=== PATIENT | male | born 1955 | race Caucasian/White ===

== ENCOUNTER 2017-08-15 10:19 | Inpatient (IN) | payer MEDICAID ==
[2017-08-15] VITALS (8 sets, daily range): BP systolic 131–194
[~2017-08-15] VITALS: Ht 175.3 cm; Wt 74.1 kg
[~2017-08-15 10:19] MED LIST: FERR-57 PO; FURO-149 PO; PHEN-726 PO
[2017-08-15] MEDS ORDERED: NACL 0.9% 1,000 ML IV ONE (10:30)
[2017-08-15] MEDS ORDERED: fentaNYL CITRATE/PF 100 MCG/2 ML AMP IVP ONE ×3 (10:30→15:15)
[2017-08-15] MEDS ORDERED: ROCURONIUM BROMIDE 10 MG/ML (ZEMURON) IV ONE ×2 (10:45→17:58)
[2017-08-15] MEDS ORDERED: SEVOFLURANE 15 MIN GAS INH ONE ×2 (10:45→17:58)
[2017-08-15] MEDS ORDERED: ePHEDrine sulfate 50 MG/ML VIAL IVP ONE (10:45)
[2017-08-15] MEDS ORDERED: ONDANSETRON HCL 4 MG/2 ML VIAL IVP ONE ×3 (10:45→17:45)
[2017-08-15] MEDS ORDERED: fentaNYL CITRATE 250 MCG/5 ML AMP IV ONE ×2 (10:45→17:58)
[2017-08-15] MEDS ORDERED: DEXAMETHASONE SOD PHOSPHATE 4 MG/ML VIAL IVP ONE (10:45)
[2017-08-15] MEDS ORDERED: PIPERACILLIN/TAZOBACTAM 3.375 GM/VIAL (ZOSYN) IV ONE ×2 (10:45→22:17)
[2017-08-15] MEDS ORDERED: PHENYLEPHRINE HCL 10 MG/ML VIAL (NEOSYNEPHRINE) IV ONE (10:45)
[2017-08-15] MEDS ORDERED: LIDOCAINE 1% 10 MG/ML, 20 ML MDV INJ ONE ×2 (10:45→11:45)
[2017-08-15] MEDS ORDERED: MIDAZOLAM HCL 5 MG/5 ML VIAL IVP ONE (10:45)
[2017-08-15] MEDS ORDERED: PROPOFOL 200MG/ 20ML VIAL (DIPRIVAN) IV ONE (10:45)
[2017-08-15] MEDS ORDERED: LR 1,000 ML IV.SOLN IV ONE ×2 (10:45→17:58)
[2017-08-15] MEDS ORDERED: GLYCOPYRROLATE 0.2 MG/ML VIAL IJ ONE (10:45)
[2017-08-15] MEDS ORDERED: WATER FOR IRRIGATION,STERILE 4,000 ML IRRIG.SOLN IR ONE (10:45)
[2017-08-15] MEDS ORDERED: MEPERIDINE HCL/PF 100 MG/ML AMP IM ONE ×2 (10:45→17:58)
[2017-08-15] MEDS ORDERED: WATER FOR IRRIGATION,STERILE 1,000 ML IRRIG.SOLN IR ONE (10:45)
[2017-08-15] MEDS ORDERED: NS IRRIG SOLN 5000 ML IR ONE (10:45)
[2017-08-15 12:10] LABS: INR 1.2 (0.80-1.20); PROTHROMBIN TIME 12.3 SECS (9.5-12.5)
[2017-08-15 12:13] LABS: BASOPHILS % (AUTO) 0.1 % (0.0-2.0); EOSINOPHILS % (AUTO) 0.1 % (0.0-4.0); LYMPHOCYTES # (AUTO) 1.2 K/uL (1.0-5.5); LYMPHOCYTES % (AUTO) 7.4 % (20.5-51.5); MEAN CORPUSCULAR HEMOGLOBIN 26 pg (27-31); MEAN CORPUSCULAR HGB CONC 33 % (32-36); MEAN CORPUSCULAR VOLUME 79 fL (79.0-98.0); MONOCYTES % (AUTO) 6.1 % (1.7-9.3); NEUTROPHILS # (AUTO) 14.3 K/uL (1.8-7.7); NEUTROPHILS % (AUTO) 86.3 % (40.0-70.0); PLATELET COUNT (AUTO) 613 K/uL (130-430); RED CELL DISTRIBUTION WIDTH 19.7 % (9.0-15.0); WHITE BLOOD COUNT (AUTO) 16.5 K/uL (4.8-10.8)
[2017-08-15 12:15] LABS: CALCIUM 7.6 mg/dL (8.4-11.0); CREATININE 1.74 mg/dL (0.55-1.30); POTASSIUM 4.5 mmol/L (3.5-5.1); RED BLOOD CELL COUNT(AUTO) 1.66 MIL/uL (4.2-6.2)
[2017-08-15 12:16] LABS: HEMATOCRIT 13.2 % (36-54); HEMOGLOBIN 4.4 g/dL (14.0-18.0)
[2017-08-15 12:19] LABS: ALBUMIN 1.6 g/dL (3.4-4.8); TOTAL BILIRUBIN 0.3 mg/dL (0.0-1.0)
[2017-08-15] MEDS ORDERED: NACL 0.9% 1,750 ML IV ONE (12:30)
[2017-08-15] MEDS ORDERED: MORPHINE 4 MG/ML INJ. SYRINGE IVP PRN ×3 (17:30→21:00)
[2017-08-15] MEDS ORDERED: MEPERIDINE HCL/PF 25 MG/ML DISP.SYRIN IVP PRN (17:45)
[2017-08-15] MEDS ORDERED: MIDAZOLAM HCL 5 MG/5 ML VIAL IVP PRN (17:45)
[2017-08-15] MEDS ORDERED: NALOXONE HCL 0.4 MG/ML AMP (NARCAN) IVP ONE (17:45)
[2017-08-15] MEDS ORDERED: fentaNYL CITRATE/PF 100 MCG/2 ML AMP IVP PRN (17:45)
[2017-08-15] MEDS ORDERED: ETOMIDATE 20 MG/ 10 ML VIAL (AMIDATE) IVP ONE (17:58)
[2017-08-15] MEDS ORDERED: MORPHINE SULFATE 10 MG/ML VIAL IVP ONE (17:58)
[2017-08-15] MEDS ORDERED: MIDAZOLAM HCL 5 MG/ML VIAL (VERSED) IV ONE (17:58)
[2017-08-15] MEDS ORDERED: cefTRIAXone 1 GM IVPB PREMIX 50 ML IV ONE (17:58)
[2017-08-15] MEDS ORDERED: SUCCINYLCHOLINE CHLORIDE 20 MG/ML(QUELICIN) IVP ONE (17:58)
[2017-08-15] MEDS ORDERED: NS IRRIG SOLN 1000 ML IR ONE (17:58)
[2017-08-15] MEDS: KETOROLAC TROMETHAMINE 15 MG VIAL IVP SCH ×2 (18:00→23:49)
[2017-08-15] MEDS ORDERED: ONDANSETRON HCL 4 MG/2 ML VIAL IVP PRN (19:45)
[2017-08-15] MEDS ORDERED: cefTRIAXone 1 GM in D5W 50 ML IV SCH (20:00)
[2017-08-15] MEDS ORDERED: PNEUMOCOCCAL 23-VAL P-SAC VAC 0.5 ML VIAL I.M. ONE (20:00)
[2017-08-15] MEDS: PIPERACILLIN/TAZO 3.375/DEX-IS 50 ML IV SCH ×2 (20:15→23:40)
[2017-08-15 20:16] LABS: BASOPHILS # (AUTO) 0.5 K/uL (0.0-0.2); BASOPHILS % (AUTO) 3.2 % (0.0-2.0); EOSINOPHILS % (AUTO) 0.1 % (0.0-4.0); HEMOGLOBIN 7.5 g/dL (14.0-18.0); LYMPHOCYTES # (AUTO) 1.5 K/uL (1.0-5.5); LYMPHOCYTES % (AUTO) 9.9 % (20.5-51.5); MEAN CORPUSCULAR HEMOGLOBIN 30 pg (27-31); MEAN CORPUSCULAR HGB CONC 35 % (32-36); MEAN CORPUSCULAR VOLUME 86 fL (79.0-98.0); MONOCYTES # (AUTO) 1.2 K/uL (0.0-1.0); MONOCYTES % (AUTO) 7.8 % (1.7-9.3); NEUTROPHILS # (AUTO) 12.2 K/uL (1.8-7.7); PLATELET COUNT (AUTO) 463 K/uL (130-430); RED CELL DISTRIBUTION WIDTH 15.5 % (9.0-15.0); WHITE BLOOD COUNT (AUTO) 15.4 K/uL (4.8-10.8)
[2017-08-15 20:19] LABS: HEMATOCRIT 21.6 % (36-54)
[2017-08-15] MEDS ORDERED: LORazepam 2 MG/ML VIAL IVP PRN (21:00)
[2017-08-15] MEDS ORDERED: MORPHINE 2 MG/ML INJ. SYRINGE IVP PRN (21:15)
[2017-08-15] MEDS: NACL 0.9% 1,000 ML IV SCH (21:55)
[2017-08-16] VITALS (26 sets, daily range): BP systolic 95–166
[2017-08-16] MEDS: ENALAPRILAT DIHYDRATE 1.25 MG/ML VIAL IVP PRN (00:23)
[2017-08-16 03:30] LABS: RED BLOOD CELL COUNT(AUTO) 2.28 MIL/uL (4.2-6.2); WHITE BLOOD COUNT (AUTO) 13.3 K/uL (4.8-10.8)
[2017-08-16 03:31] LABS: MEAN CORPUSCULAR HEMOGLOBIN 29 pg (27-31); MEAN CORPUSCULAR HGB CONC 34 % (32-36); MEAN CORPUSCULAR VOLUME 84 fL (79.0-98.0); PLATELET COUNT (AUTO) 409 K/uL (130-430); RED CELL DISTRIBUTION WIDTH 15.6 % (9.0-15.0)
[2017-08-16 03:32] LABS: BASOPHILS % (AUTO) 0.1 % (0.0-2.0); EOSINOPHILS % (AUTO) 0.3 % (0.0-4.0); LYMPHOCYTES # (AUTO) 1.2 K/uL (1.0-5.5); LYMPHOCYTES % (AUTO) 8.7 % (20.5-51.5); MONOCYTES % (AUTO) 7.6 % (1.7-9.3); NEUTROPHILS # (AUTO) 11.1 K/uL (1.8-7.7)
[2017-08-16 03:36] LABS: HEMOGLOBIN 6.5 g/dL (14.0-18.0)
[2017-08-16 03:47] LABS: NEUTROPHILS % (AUTO) 83.3 % (40.0-70.0)
[2017-08-16 05:07] LABS: PROTHROMBIN TIME 10.6 SECS (9.5-12.5)
[2017-08-16 05:12] LABS: ALBUMIN 1.7 g/dL (3.4-4.8); CALCIUM 7.2 mg/dL (8.4-11.0); CREATININE 1.61 mg/dL (0.55-1.30); POTASSIUM 4.3 mmol/L (3.5-5.1); TOTAL BILIRUBIN 0.5 mg/dL (0.0-1.0)
[2017-08-16 05:52] LABS: BILIRUBIN,URINE 2+ (NEGATIVE); BLOOD, URINE 3+ (NEGATIVE); CLARITY/URINE CLOUDY (CLEAR); COLOR,URINE RED (YELLOW); GLUCOSE,URINE NEGATIVE (NEGATIVE); KETONES,URINE NEGATIVE (NEGATIVE); LEUKOCYTE ESTERASE ,URINE TRACE (NEGATIVE); NITRITE, URINE POSITIVE (NEGATIVE); PROTEIN URINE 3+ (NEGATIVE)
[2017-08-16] MEDS: KETOROLAC TROMETHAMINE 15 MG VIAL IVP SCH ×4 (06:06→23:29)
[2017-08-16] MEDS: PIPERACILLIN/TAZO 3.375/DEX-IS 50 ML IV SCH ×4 (06:07→23:29)
[2017-08-16 06:47] LABS: RBC,URINE >100 /HPF (0-3)
[2017-08-16 06:48] LABS: BACTERIA,URINE MODERATE /HPF (None Seen)
[2017-08-16] MEDS ORDERED: FUROSEMIDE 40 MG/4 ML VIAL IVP ONE (07:00)
[2017-08-16] MEDS: PANTOPRAZOLE SODIUM 40 MG/VIAL (PROTONIX) IVP SCH (08:48)
[2017-08-16] MEDS: NACL 0.9% 1,000 ML IV SCH ×3 (08:49→23:34)
[2017-08-16 09:18] LABS: BASOPHILS % (AUTO) 0.1 % (0.0-2.0); EOSINOPHILS % (AUTO) 0.3 % (0.0-4.0); HEMATOCRIT 24.7 % (36-54); HEMOGLOBIN 8.4 g/dL (14.0-18.0); LYMPHOCYTES # (AUTO) 1.1 K/uL (1.0-5.5); MEAN CORPUSCULAR HEMOGLOBIN 29 pg (27-31); MEAN CORPUSCULAR HGB CONC 34 % (32-36); MEAN CORPUSCULAR VOLUME 86 fL (79.0-98.0); MONOCYTES # (AUTO) 1.2 K/uL (0.0-1.0); MONOCYTES % (AUTO) 9.4 % (1.7-9.3); NEUTROPHILS % (AUTO) 82.2 % (40.0-70.0); PLATELET COUNT (AUTO) 397 K/uL (130-430); RED BLOOD CELL COUNT(AUTO) 2.87 MIL/uL (4.2-6.2); RED CELL DISTRIBUTION WIDTH 15.8 % (9.0-15.0); WHITE BLOOD COUNT (AUTO) 13.3 K/uL (4.8-10.8)
[2017-08-16 12:29] LABS: BASOPHILS % (AUTO) 0.1 % (0.0-2.0); EOSINOPHILS # (AUTO) 0.1 K/uL (0.0-0.4); EOSINOPHILS % (AUTO) 0.5 % (0.0-4.0); HEMATOCRIT 26.2 % (36-54); HEMOGLOBIN 8.5 g/dL (14.0-18.0); LYMPHOCYTES # (AUTO) 1.1 K/uL (1.0-5.5); LYMPHOCYTES % (AUTO) 7.7 % (20.5-51.5); MEAN CORPUSCULAR HEMOGLOBIN 28 pg (27-31); MEAN CORPUSCULAR HGB CONC 33 % (32-36); MEAN CORPUSCULAR VOLUME 86 fL (79.0-98.0); MONOCYTES # (AUTO) 1.3 K/uL (0.0-1.0); MONOCYTES % (AUTO) 8.8 % (1.7-9.3); NEUTROPHILS # (AUTO) 11.8 K/uL (1.8-7.7); NEUTROPHILS % (AUTO) 82.9 % (40.0-70.0); PLATELET COUNT (AUTO) 431 K/uL (130-430); RED BLOOD CELL COUNT(AUTO) 3.04 MIL/uL (4.2-6.2); RED CELL DISTRIBUTION WIDTH 15.9 % (9.0-15.0); WHITE BLOOD COUNT (AUTO) 14.3 K/uL (4.8-10.8)
[2017-08-16 14:23] LABS: PFT COLLAGEN/ADP 58 SECONDS (64-106); PFT COLLAGEN/EPINEPHRINE 279 SECONDS (80-184)
[2017-08-17] VITALS (23 sets, daily range): BP systolic 125–171
[2017-08-17] MEDS: MORPHINE 4 MG/ML INJ. SYRINGE IVP PRN (02:04)
[2017-08-17 06:06] LABS: BASOPHILS % (AUTO) 0.2 % (0.0-2.0); EOSINOPHILS # (AUTO) 0.1 K/uL (0.0-0.4); EOSINOPHILS % (AUTO) 0.8 % (0.0-4.0); HEMATOCRIT 23.6 % (36-54); HEMOGLOBIN 8.1 g/dL (14.0-18.0); LYMPHOCYTES # (AUTO) 1.4 K/uL (1.0-5.5); LYMPHOCYTES % (AUTO) 7.4 % (20.5-51.5); MEAN CORPUSCULAR HEMOGLOBIN 30 pg (27-31); MEAN CORPUSCULAR HGB CONC 34 % (32-36); MEAN CORPUSCULAR VOLUME 86 fL (79.0-98.0); MONOCYTES # (AUTO) 1.3 K/uL (0.0-1.0); MONOCYTES % (AUTO) 7.2 % (1.7-9.3); NEUTROPHILS # (AUTO) 15.9 K/uL (1.8-7.7); NEUTROPHILS % (AUTO) 84.4 % (40.0-70.0); PLATELET COUNT (AUTO) 494 K/uL (130-430); RED BLOOD CELL COUNT(AUTO) 2.74 MIL/uL (4.2-6.2); RED CELL DISTRIBUTION WIDTH 15.9 % (9.0-15.0); WHITE BLOOD COUNT (AUTO) 18.7 K/uL (4.8-10.8)
[2017-08-17] MEDS: KETOROLAC TROMETHAMINE 15 MG VIAL IVP SCH ×4 (06:12→23:42)
[2017-08-17] MEDS: PIPERACILLIN/TAZO 3.375/DEX-IS 50 ML IV SCH ×4 (06:13→23:41)
[2017-08-17 06:48] LABS: ALBUMIN 1.3 g/dL (3.4-4.8); CREATININE 1.45 mg/dL (0.55-1.30); POTASSIUM 3.4 mmol/L (3.5-5.1); TOTAL BILIRUBIN 0.4 mg/dL (0.0-1.0)
[2017-08-17 06:51] LABS: CALCIUM 6.9 mg/dL (8.4-11.0)
[2017-08-17] MEDS ORDERED: KCL 20 mEq in 100 mL (PREMIX) 100 ML IV ONE (07:00)
[2017-08-17] MEDS: NACL 0.9% 1,000 ML IV SCH ×2 (10:00→23:35)
[2017-08-17] MEDS: PANTOPRAZOLE SODIUM 40 MG/VIAL (PROTONIX) IVP SCH (10:00)
[2017-08-17 10:22] LABS: FREE PSA 4.64 ng/mL
[2017-08-17] MEDS ORDERED: ACETAMINOPHEN 650 MG SUPP.RECT RC PRN (16:00)
[2017-08-17] MEDS: ENALAPRILAT DIHYDRATE 1.25 MG/ML VIAL IVP PRN (16:36)
[2017-08-18] VITALS (21 sets, daily range): BP systolic 108–171
[2017-08-18] MEDS: ENALAPRILAT DIHYDRATE 1.25 MG/ML VIAL IVP PRN (04:53)
[2017-08-18 06:02] LABS: HEMATOCRIT 26.7 % (36-54); MEAN CORPUSCULAR HEMOGLOBIN 30 pg (27-31); MEAN CORPUSCULAR HGB CONC 34 % (32-36); MEAN CORPUSCULAR VOLUME 88 fL (79.0-98.0); PLATELET COUNT (AUTO) 623 K/uL (130-430); RED BLOOD CELL COUNT(AUTO) 3.05 MIL/uL (4.2-6.2); RED CELL DISTRIBUTION WIDTH 15.7 % (9.0-15.0); WHITE BLOOD COUNT (AUTO) 19.5 K/uL (4.8-10.8)
[2017-08-18 06:05] LABS: CALCIUM 7.4 mg/dL (8.4-11.0); CREATININE 1.22 mg/dL (0.55-1.30); POTASSIUM 3.2 mmol/L (3.5-5.1)
[2017-08-18 06:11] LABS: ALBUMIN 1.4 g/dL (3.4-4.8); TOTAL BILIRUBIN 0.5 mg/dL (0.0-1.0)
[2017-08-18] MEDS: KETOROLAC TROMETHAMINE 15 MG VIAL IVP SCH ×3 (06:20→17:43)
[2017-08-18] MEDS: PIPERACILLIN/TAZO 3.375/DEX-IS 50 ML IV SCH ×4 (06:20→23:54)
[2017-08-18 06:25] LABS: ATYPICAL LYMPHOCYTES % 0 % (0-0); BAND % (MANUAL) 1 % (0-6); LYMPHOCYTES % (MANUAL) 5 % (20-46); MONOCYTES % (MANUAL) 2 % (0-11)
[2017-08-18 06:26] LABS: BASOPHILS % (MANUAL) 0 % (0-2); EOSINOPHILS % (MANUAL) 0 % (0-7)
[2017-08-18] MEDS ORDERED: KCL 20 mEq in 100 mL (PREMIX) 100 ML IV ONE (08:00)
[2017-08-18 08:08] LABS: PROSTATE SPECIFIC AG TOTAL 23.2 ng/mL (0.0-4.0)
[2017-08-18] MEDS: PANTOPRAZOLE SODIUM 40 MG/VIAL (PROTONIX) IVP SCH (08:46)
[2017-08-18] MEDS: NACL 0.9% 1,000 ML IV SCH (08:47)
[2017-08-18] MEDS ORDERED: DEXTROSE 50% JECT 50 ML DISP.SYRIN IVP PRN (10:00)
[2017-08-18 10:35] LABS: PHOSPHORUS 3.2 mg/dL (2.7-4.5)
[2017-08-18] MEDS ORDERED: MIDAZOLAM HCL 5 MG/5 ML VIAL IVP PRN (12:15)
[2017-08-18] MEDS ORDERED: ONDANSETRON HCL 4 MG/2 ML VIAL IVP ONE (12:15)
[2017-08-18] MEDS ORDERED: fentaNYL CITRATE/PF 100 MCG/2 ML AMP IVP PRN (12:15)
[2017-08-18] MEDS ORDERED: MORPHINE 4 MG/ML INJ. SYRINGE IVP PRN (12:15)
[2017-08-18] MEDS ORDERED: MEPERIDINE HCL/PF 25 MG/ML DISP.SYRIN IVP PRN (12:15)
[2017-08-18] MEDS ORDERED: NALOXONE HCL 0.4 MG/ML AMP (NARCAN) IVP ONE (12:15)
[2017-08-18] MEDS ORDERED: IOHEXOL 50 ML IV ONE (12:46)
[2017-08-18 14:50] LABS: BASOPHILS % (AUTO) 0.1 % (0.0-2.0); EOSINOPHILS # (AUTO) 0.1 K/uL (0.0-0.4); EOSINOPHILS % (AUTO) 0.6 % (0.0-4.0); HEMATOCRIT 26.4 % (36-54); HEMOGLOBIN 8.8 g/dL (14.0-18.0); LYMPHOCYTES # (AUTO) 0.6 K/uL (1.0-5.5); LYMPHOCYTES % (AUTO) 2.6 % (20.5-51.5); MEAN CORPUSCULAR HEMOGLOBIN 29 pg (27-31); MEAN CORPUSCULAR HGB CONC 33 % (32-36); MEAN CORPUSCULAR VOLUME 86 fL (79.0-98.0); MONOCYTES # (AUTO) 0.7 K/uL (0.0-1.0); MONOCYTES % (AUTO) 3.1 % (1.7-9.3); NEUTROPHILS # (AUTO) 22.2 K/uL (1.8-7.7); NEUTROPHILS % (AUTO) 93.6 % (40.0-70.0); PLATELET COUNT (AUTO) 671 K/uL (130-430); RED BLOOD CELL COUNT(AUTO) 3.06 MIL/uL (4.2-6.2); RED CELL DISTRIBUTION WIDTH 16.4 % (9.0-15.0); WHITE BLOOD COUNT (AUTO) 23.6 K/uL (4.8-10.8)
[2017-08-18 14:57] LABS: CALCIUM 7.6 mg/dL (8.4-11.0); CREATININE 1.22 mg/dL (0.55-1.30); POTASSIUM 3.8 mmol/L (3.5-5.1)
[2017-08-18 15:00] LABS: PHOSPHORUS 3.7 mg/dL (2.7-4.5)
[2017-08-18] MEDS: 0.45% NACL 1,000 ML IV SCH (15:16)
[2017-08-18] MEDS: FAT EMULSIONS 250 ML IV SCH (17:41)
[2017-08-18] MEDS ORDERED: SODIUM ACETATE IV SCH ×9 (18:00)
[2017-08-18] MEDS ORDERED: TPN PERIPHERAL IV SCH ×9 (18:00)
[2017-08-18] MEDS ORDERED: *TPN PER PHARMACY XX PRN (18:00)
[2017-08-18] MEDS ORDERED: POTASSIUM ACETATE IV SCH ×9 (18:00)
[2017-08-18] MEDS ORDERED: [UNRECOGNIZED DRUG - OTHER] IV SCH ×9 (18:00)
[2017-08-18] MEDS: INSULIN REGULAR, HUMAN 100 UNITS/ML, 10 ML VIAL (novoLIN R) SUBCUT PRN (23:58)
[2017-08-19] VITALS (15 sets, daily range): BP systolic 130–174
[2017-08-19] MEDS: PIPERACILLIN/TAZO 3.375/DEX-IS 50 ML IV SCH ×4 (05:16→23:35)
[2017-08-19] MEDS: INSULIN REGULAR, HUMAN 100 UNITS/ML, 10 ML VIAL (novoLIN R) SUBCUT PRN ×2 (05:20→23:44)
[2017-08-19] MEDS: KETOROLAC TROMETHAMINE 15 MG VIAL IVP SCH ×5 (06:00→23:32)
[2017-08-19 06:27] LABS: BASOPHILS % (AUTO) 0.1 % (0.0-2.0); EOSINOPHILS % (AUTO) 0.1 % (0.0-4.0); HEMATOCRIT 23.7 % (36-54); LYMPHOCYTES # (AUTO) 0.9 K/uL (1.0-5.5); LYMPHOCYTES % (AUTO) 4.3 % (20.5-51.5); MEAN CORPUSCULAR HEMOGLOBIN 29 pg (27-31); MEAN CORPUSCULAR HGB CONC 34 % (32-36); MEAN CORPUSCULAR VOLUME 87 fL (79.0-98.0); MONOCYTES # (AUTO) 1.3 K/uL (0.0-1.0); MONOCYTES % (AUTO) 6.1 % (1.7-9.3); NEUTROPHILS # (AUTO) 19.7 K/uL (1.8-7.7); NEUTROPHILS % (AUTO) 89.4 % (40.0-70.0); RED BLOOD CELL COUNT(AUTO) 2.73 MIL/uL (4.2-6.2); RED CELL DISTRIBUTION WIDTH 16.5 % (9.0-15.0); WHITE BLOOD COUNT (AUTO) 21.9 K/uL (4.8-10.8)
[2017-08-19 06:52] LABS: CALCIUM 7.4 mg/dL (8.4-11.0); CREATININE 1.02 mg/dL (0.55-1.30); POTASSIUM 4.4 mmol/L (3.5-5.1)
[2017-08-19 07:03] LABS: ALBUMIN 1.3 g/dL (3.4-4.8); TOTAL BILIRUBIN 0.4 mg/dL (0.0-1.0)
[2017-08-19 07:26] LABS: PLATELET COUNT (AUTO) 647 K/uL (130-430)
[2017-08-19] MEDS: PANTOPRAZOLE SODIUM 40 MG/VIAL (PROTONIX) IVP SCH (08:08)
[2017-08-19] MEDS: 0.45% NACL 1,000 ML IV SCH (11:29)
[2017-08-19] MEDS: FAT EMULSIONS 250 ML IV SCH (17:49)
[2017-08-19] MEDS ORDERED: TPN CENTRAL IV SCH ×10 (18:00)
[2017-08-19] MEDS ORDERED: SODIUM ACETATE IV SCH ×10 (18:00)
[2017-08-19] MEDS ORDERED: [UNRECOGNIZED DRUG - OTHER] IV SCH ×10 (18:00)
[2017-08-19] MEDS ORDERED: POTASSIUM ACETATE IV SCH ×10 (18:00)
[2017-08-19] MEDS ORDERED: K PHOS IV SCH ×10 (18:00)
[2017-08-20 00:55] VITALS: BP_SYST 137
[2017-08-20] MEDS: PIPERACILLIN/TAZO 3.375/DEX-IS 50 ML IV SCH ×3 (06:04→17:35)
[2017-08-20] MEDS: KETOROLAC TROMETHAMINE 15 MG VIAL IVP SCH ×2 (06:05→11:48)
[2017-08-20 06:11] LABS: HEMATOCRIT 23.8 % (36-54); HEMOGLOBIN 7.9 g/dL (14.0-18.0); MEAN CORPUSCULAR HEMOGLOBIN 29 pg (27-31); MEAN CORPUSCULAR HGB CONC 33 % (32-36); MEAN CORPUSCULAR VOLUME 87 fL (79.0-98.0); PLATELET COUNT (AUTO) 646 K/uL (130-430); RED BLOOD CELL COUNT(AUTO) 2.73 MIL/uL (4.2-6.2); RED CELL DISTRIBUTION WIDTH 16.3 % (9.0-15.0); WHITE BLOOD COUNT (AUTO) 21.5 K/uL (4.8-10.8)
[2017-08-20] MEDS: 0.45% NACL 1,000 ML IV SCH (06:16)
[2017-08-20 06:27] LABS: ALBUMIN 1.3 g/dL (3.4-4.8); CALCIUM 7.6 mg/dL (8.4-11.0); CREATININE 0.96 mg/dL (0.55-1.30); TOTAL BILIRUBIN 0.4 mg/dL (0.0-1.0)
[2017-08-20 07:46] LABS: BASOPHILS % (MANUAL) 0 % (0-2); CORRECTED WHITE BLOOD COUNT 16.5 K/uL (4.5-11.0); EOSINOPHILS % (MANUAL) 9 % (0-7); LYMPHOCYTES % (MANUAL) 8 % (20-46); MONOCYTES % (MANUAL) 11 % (0-11)
[2017-08-20 08:00] VITALS: BP_SYST 130
[2017-08-20] MEDS: PANTOPRAZOLE SODIUM 40 MG/VIAL (PROTONIX) IVP SCH (08:13)
[2017-08-20 11:32] VITALS: BP_SYST 130
[2017-08-20 15:42] VITALS: BP_SYST 139
[2017-08-20] MEDS: FAT EMULSIONS 250 ML IV SCH (17:55)
[2017-08-20] MEDS ORDERED: TPN CENTRAL IV SCH ×10 (18:00)
[2017-08-20] MEDS ORDERED: K PHOS IV SCH ×10 (18:00)
[2017-08-20] MEDS ORDERED: SODIUM ACETATE IV SCH ×10 (18:00)
[2017-08-20] MEDS ORDERED: POTASSIUM ACETATE IV SCH ×10 (18:00)
[2017-08-20] MEDS ORDERED: [UNRECOGNIZED DRUG - OTHER] IV SCH ×10 (18:00)
[2017-08-20 20:10] VITALS: BP_SYST 133
[2017-08-20] MEDS ORDERED: FUROSEMIDE 40 MG/4 ML VIAL IVP ONE (22:03)
[2017-08-21] MEDS: PIPERACILLIN/TAZO 3.375/DEX-IS 50 ML IV SCH ×5 (00:10→23:22)
[2017-08-21 00:15] VITALS: BP_SYST 123
[2017-08-21] MEDS: 0.45% NACL 1,000 ML IV SCH ×2 (03:50→23:00)
[2017-08-21 06:37] LABS: ALBUMIN 1.4 g/dL (3.4-4.8); CALCIUM 7.3 mg/dL (8.4-11.0); CREATININE 0.93 mg/dL (0.55-1.30); PHOSPHORUS 2.9 mg/dL (2.7-4.5); POTASSIUM 3.9 mmol/L (3.5-5.1); TOTAL BILIRUBIN 0.6 mg/dL (0.0-1.0)
[2017-08-21 08:14] VITALS: BP_SYST 143
[2017-08-21] MEDS: PANTOPRAZOLE SODIUM 40 MG/VIAL (PROTONIX) IVP SCH (08:53)
[2017-08-21 11:21] VITALS: BP_SYST 136
[2017-08-21 11:34] LABS: HEMATOCRIT 22.8 % (36-54); HEMOGLOBIN 7.8 g/dL (14.0-18.0); MEAN CORPUSCULAR HEMOGLOBIN 29 pg (27-31); MEAN CORPUSCULAR HGB CONC 34 % (32-36); MEAN CORPUSCULAR VOLUME 86 fL (79.0-98.0); PLATELET COUNT (AUTO) 630 K/uL (130-430); RED BLOOD CELL COUNT(AUTO) 2.65 MIL/uL (4.2-6.2); WHITE BLOOD COUNT (AUTO) 22.5 K/uL (4.8-10.8)
[2017-08-21 11:45] LABS: BAND % (MANUAL) 3 % (0-6); CORRECTED WHITE BLOOD COUNT 18.6 K/uL (4.5-11.0); EOSINOPHILS % (MANUAL) 2 % (0-7); LYMPHOCYTES % (MANUAL) 6 % (20-46); MONOCYTES % (MANUAL) 12 % (0-11)
[2017-08-21 11:46] LABS: BASOPHILS % (MANUAL) 0 % (0-2); METAMYELOCYTES % 2 % (0-0)
[2017-08-21 15:54] VITALS: BP_SYST 153
[2017-08-21] MEDS: FAT EMULSIONS 250 ML IV SCH (17:48)
[2017-08-21] MEDS ORDERED: [UNRECOGNIZED DRUG - OTHER] IV SCH ×10 (18:00)
[2017-08-21] MEDS ORDERED: POTASSIUM CHLORIDE IV SCH ×10 (18:00)
[2017-08-21] MEDS ORDERED: TPN CENTRAL IV SCH ×10 (18:00)
[2017-08-21] MEDS ORDERED: K PHOS IV SCH ×10 (18:00)
[2017-08-21] MEDS ORDERED: SODIUM ACETATE IV SCH ×10 (18:00)
[2017-08-21 20:00] VITALS: BP_SYST 130
[2017-08-21] MEDS: MORPHINE 4 MG/ML INJ. SYRINGE IVP PRN (23:50)
[2017-08-22] VITALS (7 sets, daily range): BP systolic 125–151
[2017-08-22] MEDS: 0.45% NACL 1,000 ML IV SCH (04:20)
[2017-08-22] MEDS: MORPHINE 4 MG/ML INJ. SYRINGE IVP PRN ×6 (04:58→21:43)
[2017-08-22] MEDS: PIPERACILLIN/TAZO 3.375/DEX-IS 50 ML IV SCH ×3 (05:00→18:00)
[2017-08-22 07:31] LABS: ALBUMIN 1.3 g/dL (3.4-4.8); CALCIUM 7.5 mg/dL (8.4-11.0); CREATININE 0.9 mg/dL (0.55-1.30); PHOSPHORUS 3.3 mg/dL (2.7-4.5); POTASSIUM 4.1 mmol/L (3.5-5.1); TOTAL BILIRUBIN 0.8 mg/dL (0.0-1.0)
[2017-08-22 07:41] LABS: MEAN CORPUSCULAR HEMOGLOBIN 29 pg (27-31); MEAN CORPUSCULAR HGB CONC 33 % (32-36); MEAN CORPUSCULAR VOLUME 87 fL (79.0-98.0); PLATELET COUNT (AUTO) 653 K/uL (130-430); RED BLOOD CELL COUNT(AUTO) 2.35 MIL/uL (4.2-6.2); RED CELL DISTRIBUTION WIDTH 16.6 % (9.0-15.0); WHITE BLOOD COUNT (AUTO) 25.1 K/uL (4.8-10.8)
[2017-08-22 07:44] LABS: HEMATOCRIT 20.4 % (36-54); HEMOGLOBIN 6.8 g/dL (14.0-18.0)
[2017-08-22] MEDS ORDERED: VANCOMYCIN HCL 1 GM/NS PREMIX 250 ML IV ONE (08:15)
[2017-08-22] MEDS: PANTOPRAZOLE SODIUM 40 MG/VIAL (PROTONIX) IVP SCH (08:54)
[2017-08-22] MEDS ORDERED: FUROSEMIDE 20 MG/2 ML VIAL IVP ONE (11:30)
[2017-08-22 11:49] LABS: BASOPHILS % (MANUAL) 0 % (0-2); EOSINOPHILS % (MANUAL) 4 % (0-7); LYMPHOCYTES % (MANUAL) 10 % (20-46); METAMYELOCYTES % 1 % (0-0); MONOCYTES % (MANUAL) 7 % (0-11); MYELOCYTES % 2 % (0-0)
[2017-08-22] MEDS: FAT EMULSIONS 250 ML IV SCH (17:21)
[2017-08-22] MEDS ORDERED: K PHOS IV SCH ×10 (18:00)
[2017-08-22] MEDS ORDERED: TPN CENTRAL IV SCH ×10 (18:00)
[2017-08-22] MEDS ORDERED: SODIUM CHLORIDE IV SCH ×10 (18:00)
[2017-08-22] MEDS ORDERED: POTASSIUM ACETATE IV SCH ×10 (18:00)
[2017-08-22] MEDS ORDERED: [UNRECOGNIZED DRUG - OTHER] IV SCH ×10 (18:00)
[2017-08-22] MEDS ORDERED: PIPERACILLIN/TAZOBACTAM 3.375 GM/VIAL (ZOSYN) IV ONE (18:04)
[2017-08-23] MEDS: PIPERACILLIN/TAZO 3.375/DEX-IS 50 ML IV SCH ×5 (00:25→23:19)
[2017-08-23] MEDS: MORPHINE 4 MG/ML INJ. SYRINGE IVP PRN ×3 (00:35→08:36)
[2017-08-23 00:42] VITALS: BP_SYST 139
[2017-08-23] MEDS ORDERED: PIPERACILLIN/TAZOBACTAM 3.375 GM/VIAL (ZOSYN) IV ONE (01:31)
[2017-08-23] MEDS: 0.45% NACL 1,000 ML IV SCH (05:04)
[2017-08-23 07:08] LABS: HEMATOCRIT 25.3 % (36-54); HEMOGLOBIN 8.6 g/dL (14.0-18.0); MEAN CORPUSCULAR HEMOGLOBIN 30 pg (27-31); MEAN CORPUSCULAR HGB CONC 34 % (32-36); MEAN CORPUSCULAR VOLUME 86 fL (79.0-98.0); PLATELET COUNT (AUTO) 616 K/uL (130-430); RED BLOOD CELL COUNT(AUTO) 2.93 MIL/uL (4.2-6.2); RED CELL DISTRIBUTION WIDTH 16.3 % (9.0-15.0)
[2017-08-23 07:23] LABS: ALBUMIN 1.5 g/dL (3.4-4.8); CALCIUM 7.6 mg/dL (8.4-11.0); CREATININE 1.08 mg/dL (0.55-1.30); PHOSPHORUS 3.4 mg/dL (2.7-4.5); TOTAL BILIRUBIN 1.3 mg/dL (0.0-1.0)
[2017-08-23 07:43] LABS: WHITE BLOOD COUNT (AUTO) 34.5 K/uL (4.8-10.8)
[2017-08-23 08:00] VITALS: BP_SYST 137
[2017-08-23] MEDS: PANTOPRAZOLE SODIUM 40 MG/VIAL (PROTONIX) IVP SCH (08:36)
[2017-08-23 10:35] LABS: BAND % (MANUAL) 3 % (0-6); BASOPHILS % (MANUAL) 0 % (0-2); EOSINOPHILS % (MANUAL) 2 % (0-7); LYMPHOCYTES % (MANUAL) 4 % (20-46); MONOCYTES % (MANUAL) 7 % (0-11); MYELOCYTES % 1 % (0-0)
[2017-08-23] MEDS ORDERED: ONDANSETRON HCL 4 MG/2 ML VIAL IVP PRN (10:45)
[2017-08-23] MEDS ORDERED: fentaNYL CITRATE/PF 100 MCG/2 ML AMP IVP PRN (10:45)
[2017-08-23] MEDS ORDERED: LIDOCAINE MPF 1% 50 MG/5 ML AMP INJ ONE (11:15)
[2017-08-23 12:00] VITALS: BP_SYST 137
[2017-08-23] MEDS ORDERED: MORPHINE 2 MG/ML INJ. SYRINGE IVP PRN (12:15)
[2017-08-23 16:09] LABS: HEMATOCRIT 23.7 % (36-54); HEMOGLOBIN 7.8 g/dL (14.0-18.0); MEAN CORPUSCULAR HEMOGLOBIN 29 pg (27-31); MEAN CORPUSCULAR HGB CONC 33 % (32-36); MEAN CORPUSCULAR VOLUME 86 fL (79.0-98.0); PLATELET COUNT (AUTO) 592 K/uL (130-430); RED BLOOD CELL COUNT(AUTO) 2.75 MIL/uL (4.2-6.2); RED CELL DISTRIBUTION WIDTH 16.5 % (9.0-15.0)
[2017-08-23 16:38] VITALS: BP_SYST 133
[2017-08-23 17:07] LABS: WHITE BLOOD COUNT (AUTO) 38.5 K/uL (4.8-10.8)
[2017-08-23] MEDS: FAT EMULSIONS 250 ML IV SCH (17:12)
[2017-08-23] MEDS ORDERED: [UNRECOGNIZED DRUG - OTHER] IV SCH ×10 (18:00)
[2017-08-23] MEDS ORDERED: POTASSIUM ACETATE IV SCH ×10 (18:00)
[2017-08-23] MEDS ORDERED: TPN CENTRAL IV SCH ×10 (18:00)
[2017-08-23] MEDS ORDERED: K PHOS IV SCH ×10 (18:00)
[2017-08-23] MEDS ORDERED: SODIUM CHLORIDE IV SCH ×10 (18:00)
[2017-08-23 20:32] VITALS: BP_SYST 126
[2017-08-23 21:39] LABS: BAND % (MANUAL) 3 % (0-6); LYMPHOCYTES % (MANUAL) 2 % (20-46)
[2017-08-23 21:40] LABS: BASOPHILS % (MANUAL) 0 % (0-2); EOSINOPHILS % (MANUAL) 2 % (0-7); MONOCYTES % (MANUAL) 5 % (0-11)
[2017-08-23] MEDS ORDERED: MORPHINE 4 MG/ML INJ. SYRINGE ONE (23:14)
[2017-08-23 23:24] LABS: BF APPEARANCE UNSPUN CLOUDY (CLEAR); BODY FLUID COLOR RED (LT YELLOW); BODY FLUID SOURCE/ TYPE PLEURAL; BODY FLUID TOTAL VOLUME 950 mL; SOURCE/TYPE ,BODY FLUID THORACENTESIS
[2017-08-23 23:25] LABS: RBC, BODY FLUID 52077 /uL; WBC, BODY FLUID 69 /uL
[2017-08-23 23:26] LABS: EOSINOPHIL, BODY FLUID 1 %; LYMPHOCYTES, BODY FLUID 5 %; MONOCYTES,BODY FLUID 4 %; NEUTROPHIL, BODY FLUID 90 %
[2017-08-23] MEDS: INSULIN REGULAR, HUMAN 100 UNITS/ML, 10 ML VIAL (novoLIN R) SUBCUT PRN (23:40)
[2017-08-24 02:01] VITALS: BP_SYST 113
[2017-08-24] MEDS: PIPERACILLIN/TAZO 3.375/DEX-IS 50 ML IV SCH (05:15)
[2017-08-24] MEDS: 0.45% NACL 1,000 ML IV SCH (05:16)
[2017-08-24] MEDS: INSULIN REGULAR, HUMAN 100 UNITS/ML, 10 ML VIAL (novoLIN R) SUBCUT PRN ×2 (05:24→17:51)
[2017-08-24 06:29] LABS: MEAN CORPUSCULAR HEMOGLOBIN 30 pg (27-31); MEAN CORPUSCULAR HGB CONC 34 % (32-36); MEAN CORPUSCULAR VOLUME 88 fL (79.0-98.0); PLATELET COUNT (AUTO) 525 K/uL (130-430); RED BLOOD CELL COUNT(AUTO) 2.13 MIL/uL (4.2-6.2); RED CELL DISTRIBUTION WIDTH 16.5 % (9.0-15.0); WHITE BLOOD COUNT (AUTO) 29.4 K/uL (4.8-10.8)
[2017-08-24 06:41] LABS: ALBUMIN 1.2 g/dL (3.4-4.8); CALCIUM 7.5 mg/dL (8.4-11.0); CREATININE 0.99 mg/dL (0.55-1.30); PHOSPHORUS 2.9 mg/dL (2.7-4.5); POTASSIUM 3.9 mmol/L (3.5-5.1); TOTAL BILIRUBIN 1.1 mg/dL (0.0-1.0)
[2017-08-24 07:17] LABS: HEMATOCRIT 18.7 % (36-54); HEMOGLOBIN 6.3 g/dL (14.0-18.0)
[2017-08-24 08:00] VITALS: BP_SYST 127
[2017-08-24] MEDS: PANTOPRAZOLE SODIUM 40 MG/VIAL (PROTONIX) IVP SCH (09:42)
[2017-08-24 10:28] LABS: BAND % (MANUAL) 4 % (0-6); BASOPHILS % (MANUAL) 0 % (0-2); EOSINOPHILS % (MANUAL) 2 % (0-7); LYMPHOCYTES % (MANUAL) 4 % (20-46); MONOCYTES % (MANUAL) 6 % (0-11); MYELOCYTES % 1 % (0-0)
[2017-08-24 10:54] LABS: BODY FLUID GLUCOSE 125 mg/dL; BODY FLUID TOTAL PROTEIN 2.7 g/dL
[2017-08-24] MEDS ORDERED: ACETAMINOPHEN 325 MG TABLET PO ONE (11:00)
[2017-08-24] MEDS ORDERED: LORATADINE 10 MG TABLET PO ONE (11:00)
[2017-08-24] MEDS ORDERED: FUROSEMIDE 20 MG/2 ML VIAL IVP ONE (11:30)
[2017-08-24 12:38] VITALS: BP_SYST 124
[2017-08-24 16:14] VITALS: BP_SYST 123
[2017-08-24 17:10] LABS: BASOPHILS # (AUTO) 0.1 K/uL (0.0-0.2); BASOPHILS % (AUTO) 0.2 % (0.0-2.0); EOSINOPHILS # (AUTO) 0.3 K/uL (0.0-0.4); EOSINOPHILS % (AUTO) 1.1 % (0.0-4.0); MEAN CORPUSCULAR HGB CONC 33 % (32-36)
[2017-08-24 17:19] LABS: LYMPHOCYTES # (AUTO) 1.4 K/uL (1.0-5.5); LYMPHOCYTES % (AUTO) 4.8 % (20.5-51.5); MEAN CORPUSCULAR HEMOGLOBIN 29 pg (27-31); MEAN CORPUSCULAR VOLUME 88 fL (79.0-98.0); MONOCYTES # (AUTO) 2.6 K/uL (0.0-1.0); MONOCYTES % (AUTO) 9.3 % (1.7-9.3); NEUTROPHILS # (AUTO) 23.9 K/uL (1.8-7.7); NEUTROPHILS % (AUTO) 84.6 % (40.0-70.0); PLATELET COUNT (AUTO) 594 K/uL (130-430); RED BLOOD CELL COUNT(AUTO) 2.07 MIL/uL (4.2-6.2); RED CELL DISTRIBUTION WIDTH 16.2 % (9.0-15.0); WHITE BLOOD COUNT (AUTO) 28.3 K/uL (4.8-10.8)
[2017-08-24 17:22] LABS: HEMATOCRIT 18.2 % (36-54)
[2017-08-24] MEDS: FAT EMULSIONS 250 ML IV SCH (17:47)
[2017-08-24] MEDS ORDERED: [UNRECOGNIZED DRUG - OTHER] IV SCH ×10 (18:00)
[2017-08-24] MEDS ORDERED: TPN CENTRAL IV SCH ×10 (18:00)
[2017-08-24] MEDS ORDERED: POTASSIUM ACETATE IV SCH ×10 (18:00)
[2017-08-24] MEDS ORDERED: K PHOS IV SCH ×10 (18:00)
[2017-08-24] MEDS ORDERED: SODIUM CHLORIDE IV SCH ×10 (18:00)
[2017-08-24 20:15] VITALS: BP_SYST 104
[2017-08-24] MEDS: CEFEPIME 1 GM in D5W 50 ML IV SCH (21:16)
[2017-08-24 23:41] VITALS: BP_SYST 116
[2017-08-25 00:22] VITALS: BP_SYST 132
[2017-08-25] MEDS: INSULIN REGULAR, HUMAN 100 UNITS/ML, 10 ML VIAL (novoLIN R) SUBCUT PRN ×3 (06:25→23:08)
[2017-08-25 06:43] LABS: BASOPHILS # (AUTO) 0.1 K/uL (0.0-0.2); BASOPHILS % (AUTO) 0.2 % (0.0-2.0); EOSINOPHILS # (AUTO) 0.3 K/uL (0.0-0.4); HEMATOCRIT 24.5 % (36-54); HEMOGLOBIN 8.4 g/dL (14.0-18.0); LYMPHOCYTES # (AUTO) 1.1 K/uL (1.0-5.5); LYMPHOCYTES % (AUTO) 4.2 % (20.5-51.5); MEAN CORPUSCULAR HEMOGLOBIN 30 pg (27-31); MEAN CORPUSCULAR HGB CONC 34 % (32-36); MEAN CORPUSCULAR VOLUME 87 fL (79.0-98.0); MONOCYTES # (AUTO) 2.7 K/uL (0.0-1.0); MONOCYTES % (AUTO) 9.7 % (1.7-9.3); NEUTROPHILS # (AUTO) 23.2 K/uL (1.8-7.7); NEUTROPHILS % (AUTO) 84.9 % (40.0-70.0); PLATELET COUNT (AUTO) 575 K/uL (130-430); RED BLOOD CELL COUNT(AUTO) 2.81 MIL/uL (4.2-6.2); RED CELL DISTRIBUTION WIDTH 14.7 % (9.0-15.0); WHITE BLOOD COUNT (AUTO) 27.4 K/uL (4.8-10.8)
[2017-08-25 08:00] VITALS: BP_SYST 137
[2017-08-25 08:07] LABS: ALBUMIN 1.3 g/dL (3.4-4.8); CALCIUM 7.4 mg/dL (8.4-11.0); CREATININE 0.87 mg/dL (0.55-1.30); POTASSIUM 4.3 mmol/L (3.5-5.1); TOTAL BILIRUBIN 1.3 mg/dL (0.0-1.0)
[2017-08-25] MEDS: PANTOPRAZOLE SODIUM 40 MG/VIAL (PROTONIX) IVP SCH (09:07)
[2017-08-25] MEDS: CEFEPIME 1 GM in D5W 50 ML IV SCH ×2 (09:30→20:11)
[2017-08-25] MEDS: ALBUTEROL SULFATE 0.083% 2.5 MG/3 ML VIAL.NEB INH SCH ×5 (11:49→23:16)
[2017-08-25] MEDS: IPRATROPIUM BROM 0.5 MG/2.5 ML VIAL.NEB (ATROVENT) INH SCH ×5 (11:50→23:16)
[2017-08-25 12:20] VITALS: BP_SYST 138
[2017-08-25] MEDS: FAT EMULSIONS 250 ML IV SCH (17:20)
[2017-08-25] MEDS ORDERED: K PHOS IV SCH ×10 (18:00)
[2017-08-25] MEDS ORDERED: SODIUM CHLORIDE IV SCH ×10 (18:00)
[2017-08-25] MEDS ORDERED: [UNRECOGNIZED DRUG - OTHER] IV SCH ×10 (18:00)
[2017-08-25] MEDS ORDERED: TPN CENTRAL IV SCH ×10 (18:00)
[2017-08-25] MEDS ORDERED: POTASSIUM ACETATE IV SCH ×10 (18:00)
[2017-08-25 18:07] VITALS: BP_SYST 145
[2017-08-25 20:00] VITALS: BP_SYST 121
[2017-08-26 00:26] VITALS: BP_SYST 130
[2017-08-26] MEDS: ALBUTEROL SULFATE 0.083% 2.5 MG/3 ML VIAL.NEB INH SCH ×5 (02:07→19:39)
[2017-08-26] MEDS: IPRATROPIUM BROM 0.5 MG/2.5 ML VIAL.NEB (ATROVENT) INH SCH ×5 (02:08→19:39)
[2017-08-26] MEDS: INSULIN REGULAR, HUMAN 100 UNITS/ML, 10 ML VIAL (novoLIN R) SUBCUT PRN ×3 (05:08→19:21)
[2017-08-26] MEDS: ALBUTEROL SULFATE 0.083% 2.5 MG/3 ML VIAL.NEB INH PRN (05:37)
[2017-08-26] MEDS: IPRATROPIUM BROM 0.5 MG/2.5 ML VIAL.NEB (ATROVENT) INH PRN (05:37)
[2017-08-26 06:06] LABS: HEMATOCRIT 23.9 % (36-54); HEMOGLOBIN 8.1 g/dL (14.0-18.0); MEAN CORPUSCULAR HEMOGLOBIN 30 pg (27-31); MEAN CORPUSCULAR HGB CONC 34 % (32-36); MEAN CORPUSCULAR VOLUME 88 fL (79.0-98.0); PLATELET COUNT (AUTO) 617 K/uL (130-430); RED CELL DISTRIBUTION WIDTH 15.2 % (9.0-15.0)
[2017-08-26 06:32] LABS: CALCIUM 7.8 mg/dL (8.4-11.0); CREATININE 0.98 mg/dL (0.55-1.30); PHOSPHORUS 2.5 mg/dL (2.7-4.5); POTASSIUM 3.8 mmol/L (3.5-5.1)
[2017-08-26 06:52] LABS: WHITE BLOOD COUNT (AUTO) 30.5 K/uL (4.8-10.8)
[2017-08-26 08:17] LABS: ATYPICAL LYMPHOCYTES % 0 % (0-0); BAND % (MANUAL) 3 % (0-6); BASOPHILS % (MANUAL) 0 % (0-2); EOSINOPHILS % (MANUAL) 0 % (0-7); LYMPHOCYTES % (MANUAL) 6 % (20-46); MONOCYTES % (MANUAL) 11 % (0-11)
[2017-08-26 08:25] VITALS: BP_SYST 129
[2017-08-26] MEDS: PANTOPRAZOLE SODIUM 40 MG/VIAL (PROTONIX) IVP SCH (08:32)
[2017-08-26] MEDS: CEFEPIME 1 GM in D5W 50 ML IV SCH ×2 (08:32→20:46)
[2017-08-26] MEDS ORDERED: LIDOCAINE 1%, 20 ML MDV 20 ML ONE (10:37)
[2017-08-26 12:20] VITALS: BP_SYST 139
[2017-08-26 16:00] VITALS: BP_SYST 149
[2017-08-26] MEDS: FLUCONAZOLE 200 mg/ NS 100 ML IV SCH (17:24)
[2017-08-26] MEDS: FAT EMULSIONS 250 ML IV SCH (17:26)
[2017-08-26] MEDS ORDERED: TPN CENTRAL IV SCH ×10 (18:00)
[2017-08-26] MEDS ORDERED: [UNRECOGNIZED DRUG - OTHER] IV SCH ×10 (18:00)
[2017-08-26] MEDS ORDERED: POTASSIUM ACETATE IV SCH ×10 (18:00)
[2017-08-26] MEDS ORDERED: SODIUM CHLORIDE IV SCH ×10 (18:00)
[2017-08-26 20:34] VITALS: BP_SYST 133
[2017-08-26] MEDS ORDERED: NS 500 ML IV ONE (23:30)
[2017-08-27] VITALS (7 sets, daily range): BP systolic 121–157
[2017-08-27] MEDS ORDERED: VANCOMYCIN HCL 1 GM/NS PREMIX 250 ML IV ONE
[2017-08-27] MEDS: metroNIDAZOLE 250 mg/NS 50 ML IV SCH ×3 (00:52→15:30)
[2017-08-27] MEDS: INSULIN REGULAR, HUMAN 100 UNITS/ML, 10 ML VIAL (novoLIN R) SUBCUT PRN ×3 (00:59→11:45)
[2017-08-27] MEDS: ACETAMINOPHEN 325 MG TABLET PO PRN ×2 (01:01→12:50)
[2017-08-27] MEDS ORDERED: VANCOMYCIN HCL 1000 MG/VIAL IV ONE (02:16)
[2017-08-27 07:33] LABS: CALCIUM 7.1 mg/dL (8.4-11.0); CREATININE 0.95 mg/dL (0.55-1.30); POTASSIUM 4.2 mmol/L (3.5-5.1)
[2017-08-27 07:38] LABS: ALBUMIN 1.1 g/dL (3.4-4.8); TOTAL BILIRUBIN 0.8 mg/dL (0.0-1.0)
[2017-08-27 07:40] LABS: BASOPHILS # (AUTO) 0.1 K/uL (0.0-0.2); BASOPHILS % (AUTO) 0.2 % (0.0-2.0); EOSINOPHILS # (AUTO) 0.2 K/uL (0.0-0.4); EOSINOPHILS % (AUTO) 0.5 % (0.0-4.0); LYMPHOCYTES % (AUTO) 3.1 % (20.5-51.5); MEAN CORPUSCULAR HEMOGLOBIN 29 pg (27-31); MEAN CORPUSCULAR HGB CONC 34 % (32-36); MEAN CORPUSCULAR VOLUME 88 fL (79.0-98.0); MONOCYTES # (AUTO) 3.4 K/uL (0.0-1.0); MONOCYTES % (AUTO) 10.1 % (1.7-9.3); NEUTROPHILS # (AUTO) 29.1 K/uL (1.8-7.7); PLATELET COUNT (AUTO) 588 K/uL (130-430); RED BLOOD CELL COUNT(AUTO) 2.35 MIL/uL (4.2-6.2); RED CELL DISTRIBUTION WIDTH 16.1 % (9.0-15.0)
[2017-08-27 08:00] LABS: HEMATOCRIT 20.6 % (36-54); HEMOGLOBIN 6.9 g/dL (14.0-18.0); WHITE BLOOD COUNT (AUTO) 33.8 K/uL (4.8-10.8)
[2017-08-27] MEDS: CEFEPIME 1 GM in D5W 50 ML IV SCH ×2 (08:24→21:26)
[2017-08-27] MEDS: PANTOPRAZOLE SODIUM 40 MG/VIAL (PROTONIX) IVP SCH (08:24)
[2017-08-27] MEDS: ALBUTEROL SULFATE 0.083% 2.5 MG/3 ML VIAL.NEB INH SCH ×4 (09:33→20:20)
[2017-08-27] MEDS: IPRATROPIUM BROM 0.5 MG/2.5 ML VIAL.NEB (ATROVENT) INH SCH ×5 (09:35→20:19)
[2017-08-27 10:21] LABS: NEUTROPHILS % (AUTO) 86.1 % (40.0-70.0)
[2017-08-27] MEDS ORDERED: COMMUNICATION ORDER XX ONE (16:30)
[2017-08-27] MEDS: FLUCONAZOLE 200 mg/ NS 100 ML IV SCH (17:28)
[2017-08-27] MEDS: metroNIDAZOLE 500 mg/NS 100 ML IV SCH (22:17)
[2017-08-28] MEDS: metroNIDAZOLE 500 mg/NS 100 ML IV SCH ×3 (05:34→22:59)
[2017-08-28 07:23] LABS: BASOPHILS % (AUTO) 0.1 % (0.0-2.0); EOSINOPHILS # (AUTO) 0.1 K/uL (0.0-0.4); EOSINOPHILS % (AUTO) 0.2 % (0.0-4.0); HEMATOCRIT 25.7 % (36-54); HEMOGLOBIN 8.7 g/dL (14.0-18.0); LYMPHOCYTES # (AUTO) 0.9 K/uL (1.0-5.5); LYMPHOCYTES % (AUTO) 2.3 % (20.5-51.5); MEAN CORPUSCULAR HEMOGLOBIN 30 pg (27-31); MEAN CORPUSCULAR HGB CONC 34 % (32-36); MEAN CORPUSCULAR VOLUME 88 fL (79.0-98.0); MONOCYTES # (AUTO) 3.2 K/uL (0.0-1.0); MONOCYTES % (AUTO) 7.7 % (1.7-9.3); NEUTROPHILS # (AUTO) 36.8 K/uL (1.8-7.7); NEUTROPHILS % (AUTO) 89.7 % (40.0-70.0); PLATELET COUNT (AUTO) 613 K/uL (130-430); RED BLOOD CELL COUNT(AUTO) 2.92 MIL/uL (4.2-6.2); RED CELL DISTRIBUTION WIDTH 15.4 % (9.0-15.0)
[2017-08-28 07:39] LABS: ALBUMIN 1.2 g/dL (3.4-4.8); CALCIUM 7.4 mg/dL (8.4-11.0); CREATININE 1.1 mg/dL (0.55-1.30); PHOSPHORUS 3.2 mg/dL (2.7-4.5); POTASSIUM 4.5 mmol/L (3.5-5.1); TOTAL BILIRUBIN 1.2 mg/dL (0.0-1.0)
[2017-08-28] MEDS: ALBUTEROL SULFATE 0.083% 2.5 MG/3 ML VIAL.NEB INH SCH ×4 (07:40→23:00)
[2017-08-28] MEDS: IPRATROPIUM BROM 0.5 MG/2.5 ML VIAL.NEB (ATROVENT) INH SCH ×4 (07:41→23:00)
[2017-08-28] MEDS: PANTOPRAZOLE SODIUM 40 MG/VIAL (PROTONIX) IVP SCH (08:08)
[2017-08-28 08:09] VITALS: BP_SYST 141
[2017-08-28] MEDS: CEFEPIME 1 GM in D5W 50 ML IV SCH ×2 (08:09→21:53)
[2017-08-28 10:01] VITALS: BP_SYST 141
[2017-08-28 12:37] VITALS: BP_SYST 146
[2017-08-28 16:55] VITALS: BP_SYST 144
[2017-08-28] MEDS: FLUCONAZOLE 200 mg/ NS 100 ML IV SCH (17:44)
[2017-08-28 20:06] VITALS: BP_SYST 135
[2017-08-29 00:24] VITALS: BP_SYST 131
[2017-08-29] MEDS: HYDROcodone/ACETAMIN 5-325 MG TAB (NORCO/ VICODIN) PO PRN ×2 (00:50→22:03)
[2017-08-29] MEDS: IPRATROPIUM BROM 0.5 MG/2.5 ML VIAL.NEB (ATROVENT) INH SCH ×5 (03:00→22:29)
[2017-08-29] MEDS: ALBUTEROL SULFATE 0.083% 2.5 MG/3 ML VIAL.NEB INH SCH ×5 (03:00→22:30)
[2017-08-29] MEDS: metroNIDAZOLE 500 mg/NS 100 ML IV SCH ×3 (05:41→22:42)
[2017-08-29 06:44] LABS: ALBUMIN 1.2 g/dL (3.4-4.8); CALCIUM 7.7 mg/dL (8.4-11.0); CREATININE 1.11 mg/dL (0.55-1.30); POTASSIUM 4.1 mmol/L (3.5-5.1)
[2017-08-29 06:51] LABS: HEMATOCRIT 26.3 % (36-54); HEMOGLOBIN 8.8 g/dL (14.0-18.0); MEAN CORPUSCULAR HEMOGLOBIN 30 pg (27-31); MEAN CORPUSCULAR HGB CONC 34 % (32-36); MEAN CORPUSCULAR VOLUME 89 fL (79.0-98.0); PLATELET COUNT (AUTO) 700 K/uL (130-430); RED BLOOD CELL COUNT(AUTO) 2.94 MIL/uL (4.2-6.2); RED CELL DISTRIBUTION WIDTH 15.5 % (9.0-15.0)
[2017-08-29 07:20] LABS: WHITE BLOOD COUNT (AUTO) 37.7 K/uL (4.8-10.8)
[2017-08-29 08:00] VITALS: BP_SYST 125
[2017-08-29 08:24] LABS: BAND % (MANUAL) 6 % (0-6); BASOPHILS % (MANUAL) 0 % (0-2); EOSINOPHILS % (MANUAL) 0 % (0-7); LYMPHOCYTES % (MANUAL) 4 % (20-46); MONOCYTES % (MANUAL) 5 % (0-11)
[2017-08-29] MEDS: PANTOPRAZOLE SODIUM 40 MG/VIAL (PROTONIX) IVP SCH (09:43)
[2017-08-29] MEDS: CEFEPIME 1 GM in D5W 50 ML IV SCH ×2 (09:43→22:06)
[2017-08-29] MEDS: ACETAMINOPHEN 325 MG TABLET PO PRN (09:57)
[2017-08-29] MEDS ORDERED: KETOROLAC TROMETHAMINE 15 MG VIAL IM PRN (11:15)
[2017-08-29] MEDS ORDERED: KETOROLAC TROMETHAMINE 15 MG VIAL IVP PRN (11:30)
[2017-08-29 12:00] VITALS: BP_SYST 132
[2017-08-29] MEDS ORDERED: LIDOCAINE 1% 10 MG/ML, 50 ML MDV INJ ONE (12:45)
[2017-08-29 16:00] VITALS: BP_SYST 139
[2017-08-29] MEDS: FLUCONAZOLE 200 mg/ NS 100 ML IV SCH (16:46)
[2017-08-29 18:00] LABS: APPEARANCE,SPUN,BODY FLUID CLOUDY (CLEAR); BF APPEARANCE UNSPUN BLOODY (CLEAR); BODY FLUID SOURCE/ TYPE PLEURAL; SOURCE/TYPE ,BODY FLUID THORACENTESIS
[2017-08-29 18:01] LABS: BODY FLUID COLOR RED (LT YELLOW); BODY FLUID TOTAL VOLUME 450 mL; MONOCYTES,BODY FLUID 44 %; NEUTROPHIL, BODY FLUID 56 %; RBC, BODY FLUID 75000 /uL; WBC, BODY FLUID 122 /uL
[2017-08-29 20:00] VITALS: BP_SYST 135
[2017-08-30 00:06] VITALS: BP_SYST 144
[2017-08-30] MEDS: IPRATROPIUM BROM 0.5 MG/2.5 ML VIAL.NEB (ATROVENT) INH SCH ×3 (03:00→10:55)
[2017-08-30] MEDS: ALBUTEROL SULFATE 0.083% 2.5 MG/3 ML VIAL.NEB INH SCH ×3 (03:00→10:55)
[2017-08-30] MEDS: metroNIDAZOLE 500 mg/NS 100 ML IV SCH (05:38)
[2017-08-30 06:16] LABS: HEMATOCRIT 23.5 % (36-54); HEMOGLOBIN 8.1 g/dL (14.0-18.0); MEAN CORPUSCULAR HEMOGLOBIN 30 pg (27-31); MEAN CORPUSCULAR HGB CONC 34 % (32-36); MEAN CORPUSCULAR VOLUME 88 fL (79.0-98.0); PLATELET COUNT (AUTO) 641 K/uL (130-430); RED BLOOD CELL COUNT(AUTO) 2.66 MIL/uL (4.2-6.2); RED CELL DISTRIBUTION WIDTH 15.8 % (9.0-15.0)
[2017-08-30 06:17] LABS: CALCIUM 7.3 mg/dL (8.4-11.0); CREATININE 1.16 mg/dL (0.55-1.30); POTASSIUM 4.6 mmol/L (3.5-5.1)
[2017-08-30 07:53] LABS: BAND % (MANUAL) 4 % (0-6); BASOPHILS % (MANUAL) 0 % (0-2); EOSINOPHILS % (MANUAL) 0 % (0-7); LYMPHOCYTES % (MANUAL) 3 % (20-46); MONOCYTES % (MANUAL) 3 % (0-11)
[2017-08-30 07:54] LABS: MYELOCYTES % 1 % (0-0)
[2017-08-30 08:22] VITALS: BP_SYST 142
[2017-08-30] MEDS: IPRATROPIUM BROM 0.5 MG/2.5 ML VIAL.NEB (ATROVENT) INH PRN (08:44)
[2017-08-30] MEDS: ALBUTEROL SULFATE 0.083% 2.5 MG/3 ML VIAL.NEB INH PRN (08:44)
[2017-08-30] MEDS: CEFEPIME 1 GM in D5W 50 ML IV SCH (09:02)
[2017-08-30] MEDS: PANTOPRAZOLE SODIUM 40 MG/VIAL (PROTONIX) IVP SCH (09:03)
[2017-08-30 09:49] VITALS: BP_SYST 142
[2017-08-30 12:00] VITALS: BP_SYST 139
[2017-08-30 17:29] LABS: BODY FLUID GLUCOSE 125 mg/dL; BODY FLUID TOTAL PROTEIN 2.7 g/dL
== END 2017-08-30 13:31 | disposition home health service (06) | DRG 710 ==
LOC: SED 10:19 → SDS 15:45 → SMU 15:45 → SDS 16:19 → SIC 16:20 → STU 08-19 10:54 → SMU 08-29 12:17
PROVIDERS: ADMIT Internal Medicine; ATTEND Internal Medicine
PROC: 30233L1 Transfusion of Nonautologous Fresh Plasma into Peripheral Vein, Percutaneous Approach (ICD-10-PCS; 2017-08-15)
PROC: 30233N1 Transfusion of Nonautologous Red Blood Cells into Peripheral Vein, Percutaneous Approach (ICD-10-PCS; 2017-08-15)
PROC: 30233R1 Transfusion of Nonautologous Platelets into Peripheral Vein, Percutaneous Approach (ICD-10-PCS; 2017-08-15)
PROC: 30233K1 Transfusion of Nonautologous Frozen Plasma into Peripheral Vein, Percutaneous Approach (ICD-10-PCS; 2017-08-15)
PROC: 0W994ZZ Drainage of Right Pleural Cavity, Percutaneous Endoscopic Approach (ICD-10-PCS; 2017-08-15)
PROC: 07TP0ZZ Resection of Spleen, Open Approach (ICD-10-PCS; 2017-08-15)
PROC: 5A1935Z Respiratory Ventilation, Less than 24 Consecutive Hours (ICD-10-PCS; 2017-08-15)
PROC: 0HQ0XZZ Repair Scalp Skin, External Approach (ICD-10-PCS; 2017-08-15)
PROC: BT1D1ZZ Fluoroscopy of Right Kidney, Ureter and Bladder using Low Osmolar Contrast (ICD-10-PCS; 2017-08-18)
PROC: 0T768DZ Dilation of Right Ureter with Intraluminal Device, Via Natural or Artificial Opening Endoscopic (ICD-10-PCS; 2017-08-18)
PROC: 0TBB8ZZ Excision of Bladder, Via Natural or Artificial Opening Endoscopic (ICD-10-PCS; 2017-08-18)
PROC: 0TCB8ZZ Extirpation of Matter from Bladder, Via Natural or Artificial Opening Endoscopic (ICD-10-PCS; principal; 2017-08-18 10:30)
PROC: 0W993ZZ Drainage of Right Pleural Cavity, Percutaneous Approach (ICD-10-PCS; 2017-08-23)
PROC: 0W994ZZ Drainage of Right Pleural Cavity, Percutaneous Endoscopic Approach (ICD-10-PCS; 2017-08-29)
DX: A41.9 Sepsis, unspecified organism (principal); N17.0 Acute kidney failure with tubular necrosis; J96.01 Acute respiratory failure with hypoxia; J90 Pleural effusion, not elsewhere classified; J15.9 Unspecified bacterial pneumonia; C78.00 Secondary malignant neoplasm of unspecified lung; C78.7 Secondary malignant neoplasm of liver and intrahepatic bile duct; S36.09XA Other injury of spleen, initial encounter; R18.8 Other ascites; C67.9 Malignant neoplasm of bladder, unspecified; E88.09 Other disorders of plasma-protein metabolism, not elsewhere classified; R31.0 Gross hematuria; D47.3 Essential (hemorrhagic) thrombocythemia; D50.0 Iron deficiency anemia secondary to blood loss (chronic); I10 Essential (primary) hypertension; K21.9 Gastro-esophageal reflux disease without esophagitis; N13.30 Unspecified hydronephrosis; N39.0 Urinary tract infection, site not specified; W18.39XA Other fall on same level, initial encounter; S01.01XA Laceration without foreign body of scalp, initial encounter; Z87.891 Personal history of nicotine dependence; Y93.89 Activity, other specified; Y92.89 Other specified places as the place of occurrence of the external cause; Y99.8 Other external cause status; Z92.21 Personal history of antineoplastic chemotherapy
CPT/HCPCS: 32555; 36415; 36600; 70450-TC; 71045; 72125-TC; 76000; 80048; 80053; 81000-TC; 82803-TC; 82947-TC; 82962; 83605; 83690-TC; 83735-TC; 83880; 84100-TC; 84153; 84157-TC; 84478-TC; 84484; 85007; 85025; 85027; 85379; 85384-TC; 85576; 85610-TC; 85730-TC; 86886; 86900; 86901; 86920; 87040-TC; 87070-TC; 87081; 87086; 87101; 87116; 87205-TC; 87230-TC; 88108; 88304; 88305; 88307; 89051-TC; 89060-TC; 90732; 93005; 93970; 93971; 94002; 94003; 94640; 94760; 96361; 96374; 96376; 97110-GP; 97116-GP; 97530-GP; 99291; C1729; C1751; C1769; C2625; C9113; J0330; J0610; J0692; J0696; J1100; J1450; J1815; J1885; J1940; J2001; J2060; J2175; J2250; J2270; J2370; J2405; J2543; J2704; J3010; J3370; J3475; J3480; J3490; J7030; J7040; J7050; J7060; J7120; J7131; J7613; P9021; P9034; P9059; Q9967